=== PATIENT | male | born 1950 | race Caucasian/White ===

== ENCOUNTER 2018-10-05 10:08 | Day surgery (SDC) | payer MEDICARE, SELFPAY ==
--- NOTE | 2018-10-05 | PATH_ITS ---
[facility] Accession Number: [id number] . 01 Material submitted: . PART A: colon - ASCENDING COLON POLYP PART B: colon - TRANSVERSE COLON POLYP PART C: rectum - RECTAL POLYP . 01 Clinical history: . A-B: POLYP X3 . 02 Diagnosis: A. Ascending Colon, Polyp, Biopsy: Tubular adenoma. . B. Transverse Colon, Polyp, Biopsy: Tubular adenoma. . C. Rectum, Polyp, Biopsy: Tubular adenoma. MRV/10/07/2018 . 02 Electronically signed: . Elizabeth Velazquez MD, Pathologist NPI- [id number] . 01 Gross description: . Part A: ASCENDING COLON POLYP: Received in formalin are 3 fragment(s) of mayo, soft tissue measuring 0.5 x 0.3 x 0.3 cm to 0.4 x 0.4 x 0.1 cm submitted entirely in 1 cassette(s) Part B: TRANSVERSE COLON POLYP: Received in formalin are multiple fragment(s) of mayo, soft tissue measuring 0.9 x 0.5 x 0.3 cm in aggregate submitted entirely in 1 cassette(s) Part C: RECTAL POLYP: Received in formalin are multiple fragment(s) of mayo, soft tissue measuring 1.0 x 0.5 x 0.3 cm in aggregate submitted entirely in 1 cassette(s) /CKI /CKI . 02 Pathologist provided ICD-10: D12.2, D12.3, D12.8 . 02 CPT . 211133, 429843, [id number] Performed at: [address] [id number] MD Eulalio Tierney MD Phone: [phone] Performed at: 02 [facility] [address] [place] [id number] MD Elizabeth Velazquez MD Phone: [phone]
[2018-10-05 10:53] VITALS: BP 143/83; PULSE 86; RESP 16; TEMP 37.4; O2SAT 96; BMI 33.5
[2018-10-05] MEDS: SODIUM CHLORIDE 0.9% 1,000 ML 150 ML IV (11:06)
--- NOTE | 2018-10-05 12:50 | PM.HP.1 ---
History of Present Illness Chief complaint: [id number] Patient History Social History household members: none Family & Social History Social History: household members none Meds Home Medications Medication Instructions Recorded Confirmed Type levothyroxine 50 mcg PO DAILY #0 05/11/10 10/05/18 History ascorbic acid (vitamin C) [Vitamin 500 mg PO DAILY 10/05/18 10/05/18 History C] cyanocobalamin (vitamin B-12) 500 mcg PO DAILY 10/05/18 10/05/18 History [Vitamin B-12] divalproex 500 mg PO TID 10/05/18 10/05/18 History multivitamin,tx-minerals 1 cap PO DAILY 10/05/18 10/05/18 History [Multi-Vitamin HP/Minerals] Allergies Allergy/AdvReac Type Severity Reaction Status Date / Time No Known Drug Allergies Allergy Verified 10/05/18 10:47 Review of Systems Review of Systems All systems reviewed & are unremarkable except as noted in HPI and below Exam Vital Signs (past 8 hours): - 10/05/18 10:53 Temperature 99.3 F Pulse Rate 86 Respiratory Rate 16 Blood Pressure 143/83 H Pulse Oximetry 96 Oxygen Delivery Method Room Air Narrative Exam Narrative: Awake alert and oriented x3, pupils round reactive to light, heart regular rate and rhythm, lungs clear, abdomen soft nontender nondistended Assessment & Plan Assessment & Plan narrative: Colon cancer screening, colonoscopy
[2018-10-05] MEDS: MIDAZOLAM 5 MG/5 ML VIAL IV (13:11)
[2018-10-05] MEDS: fentaNYL 250 MCG/5 ML INJ IV (13:12)
--- NOTE | 2018-10-05 13:32 | PM.OP.ENDO ---
Operative Date/Time/Diagnoses Date of procedure: 10/05/18 Procedure & Clinicians Study performed: Colonoscopy with cold biospy and snare polypectomy Moderate conscious sedation was administered by the endoscopy nurse and supervised by the endoscopist. The following parameters were monitored: Oxygen saturation, heart rate, blood pressure, and response to care. Sedation: 5 mg of Versed, 175 micro g fentanyl Indications: Colon cancer screening. Last colonoscopy was done greater than 10 years ago Procedure Notes Procedure in detail: Prior to the procedure, history and physical was performed, and patient medications and allergies were reviewed. Preprocedure nursing history and assessment was reviewed. Patient identification and proposed procedure were verified by the physician and nurse in the procedure room. The physical status of the patient was reassessed after the procedure. After informed consent was obtained including risks, benefits, and alternatives, the scope was passed under direct vision. Throughout the procedure, the patient's blood pressure, pulse, and oxygen saturations were monitored continuously. The colonoscope was introduced through the anus and advanced to the cecum as identified by the appendiceal orifice and ileocecal valve. The patient tolerated the procedure well. Bowel prep was deemed adequate to detect polyps greater than 5 mm. Perianal and digital rectal examination unremarkable. Retroflexion in the rectum notable for grade 2 internal hemorrhoids Many medium mouth diverticula noted in the sigmoid colon Seven sessile polyps noted in the rectum, transverse colon, and ascending colon. These ranged in size from 3 mm up to 7 mm. They were resected and retrieved with a combination of Jumbo forceps and cold snare. Impression: Seven 3-7 mm polyps removed from the rectum, transverse colon, and ascending colon Sigmoid colon diverticulosis Internal hemorrhoids Sedation minutes: 28 Complications: other (EBL minimal. No complications) Plan for aftercare: Follow-up pathology results Repeat colonoscopy at a date to be determined based on pathology results Resume home medications High-fiber diet Discharge home with escort
[2018-10-05 13:36] VITALS: BP 121/81; PULSE 74; RESP 10; TEMP 36.9; O2SAT 95
[2018-10-05 13:41] VITALS: BP 121/71; PULSE 84; RESP 16; O2SAT 95
[2018-10-05 13:49] VITALS: BP 122/76; PULSE 78; RESP 16; TEMP 36.6; O2SAT 93
--- NOTE | 2018-10-05 13:57 | SUR.PHASEII ---
pt arrived to phase II via stretcher. pt sitting up, drinking coffee and talking to friend at bedside. pt denies any pain/discomfort or nausea. abd soft at this time. bed in lowest position and call light given to pt. pt appears comfortable at this time. pt requesting to rest a little longer prior to getting dressed to go home.
[2018-10-05 14:07] VITALS: BP 130/77; PULSE 75; RESP 16; TEMP 36.3; O2SAT 97
== END 2018-10-05 14:19 | disposition home or self-care (01) ==
PROVIDERS: PCP Internal Medicine; Visit Provider Internal Medicine
PROC: 0DJD8ZZ Inspection of Lower Intestinal Tract, Via Natural or Artificial Opening Endoscopic (ICD-10-PCS; CPT 45378; principal; 2018-10-05 12:30)
DX: Z12.11 Encounter for screening for malignant neoplasm of colon (principal); K57.30 Diverticulosis of large intestine without perforation or abscess without bleeding; K64.1 Second degree hemorrhoids; D12.2 Benign neoplasm of ascending colon; D12.3 Benign neoplasm of transverse colon; D12.8 Benign neoplasm of rectum
CPT/HCPCS: 45385; 45380; 88305; J2250; J3010

== ENCOUNTER → 2020-03-05 15:59 | Outpatient (CLI) | payer MEDICARE, SELFPAY ==
[2020-03-05 17:22] LABS: BUN Creatinine Ratio 14.6 (6-22); Blood Urea Nitrogen 14 mg/dL (9-20); Calcium 9.8 mg/dL (8.4-10.2); Carbon Dioxide 29 mmol/L (22-32); Chloride 104 mmol/L (98-107); Cholesterol 197 mg/dL (140-199); Estimated Glomerular Filt Rate > 60.0 mL/min (>60); Glucose 85 mg/dL (80-110); HDL Cholesterol 33 mg/dL (40-60); HEMOLYSIS < 15 (0-50); LDL Cholesterol Calculated 125 mg/dL (<100); Potassium 4.6 mmol/L (3.4-5.1); Sodium 140 mmol/L (137-145); Triglycerides 195 mg/dL (35-150)
[2020-03-05 17:51] LABS: TSH w/ Reflex to FT4 3.78 uIU/mL (0.47-4.68)
[2020-03-06 06:36] LABS: PSA Free % 37.6 % (.); PSA, Total 2.5 ng/mL (0.0-4.0)
== END ==
PROVIDERS: PCP Internal Medicine; Referring Provider Internal Medicine; Visit Provider Internal Medicine
DX: E03.9 Hypothyroidism, unspecified (principal); Z12.5 Encounter for screening for malignant neoplasm of prostate; M25.561 Pain in right knee; E78.5 Hyperlipidemia, unspecified
CPT/HCPCS: 36415; 80048; 80061; 84153; 84154; 84443

== ENCOUNTER → 2020-07-15 08:45 | Outpatient (CLI) | payer OTHER, SELFPAY ==
[2020-07-15 10:04] LABS: Alanine Aminotransferase 47 IU/L (<50); Aspartate Aminotransferase 40 IU/L (17-59); Cholesterol 109 mg/dL (140-199); HDL Cholesterol 34 mg/dL (40-60); LDL Cholesterol Calculated 52 mg/dL (<100); Triglycerides 117 mg/dL (35-150)
[2020-07-17 15:40] LABS: C-Reactive Protein Quant 0.9 mg/dL (<1.0); Rheumatoid Factor < 8.6 IU/mL (<12.0)
--- NOTE | 2020-10-06 07:47 | PC.NURSE ---
I received a call in the evening 10/05/20 from a person identifying themself as Enmanuel Lyles, 1950. He stated that he is currently involuntarily detained at [facility] in [place], [place]. He reported that he is not receiving proper medical care there. He stated that he is overmedicated and has had 3 falls, most recently the night before 10/04/20, that was really bad. I thought I broke my neck. Pt reports concern for his frequent falls and resultant neck pain, and his CHF. Pt reports he has been denied emergency medical care. He called [facility] to request transport to our facility for medical evaluation. I assured pt that I would forward his complaint to proper channels. APS report made confirmation #[id number]
== END ==
PROVIDERS: PCP Internal Medicine; Referring Provider Internal Medicine; Visit Provider Internal Medicine
DX: E78.5 Hyperlipidemia, unspecified (principal)
CPT/HCPCS: 36415; 80061; 84450; 84460; 84550; 86140; 86430

== ENCOUNTER → 2020-07-17 16:14 | Outpatient (CLI) | payer MEDICARE, SELFPAY ==
--- NOTE | 2020-07-17 16:16 | DI.RAD.S_ITS ---
PROCEDURE: XR KNEE RT 1TO2V INDICATIONS: KNEE PAIN TECHNIQUE: 2 views of the knee were acquired. COMPARISON: None. FINDINGS: Bones: No fractures or dislocations. No suspicious bony lesions. Moderate lateral and patellofemoral as well as mild to moderate medial compartment narrowing. Minimal periarticular osteophytes and no erosions. Soft tissues: Moderate joint effusion. No suspicious soft tissue calcifications. IMPRESSION: Tricompartmental degenerative changes consistent with arthritis as above. Dictated by: Tonia Valentino M.D. on 07/17/2020 at 17:25 Approved by: Tonia Valentino M.D. on 07/17/2020 at 17:25
--- NOTE | 2020-07-17 16:16 | DI.RAD.S_ITS ---
PROCEDURE: XR KNEE LT 1TO2V INDICATIONS: KNEE PAIN TECHNIQUE: 2 views of the knee were acquired. COMPARISON: None. FINDINGS: Bones: No fractures or dislocations. No suspicious bony lesions. There is moderate to severe medial and mild to moderate lateral as well as patellofemoral compartment narrowing. No erosions. Very minimal periarticular osteophytes. Soft tissues: [id number] joint effusion. No suspicious soft tissue calcifications. IMPRESSION: Tricompartmental arthritic change most severe in the medial compartment as above. Dictated by: Tonia Valentino M.D. on 07/17/2020 at 17:24 Approved by: Tonia Valentino M.D. on 07/17/2020 at 17:25
== END ==
PROVIDERS: PCP Internal Medicine; Referring Provider Internal Medicine; Visit Provider Internal Medicine
DX: M25.561 Pain in right knee (principal); M25.562 Pain in left knee; M25.461 Effusion, right knee; M25.462 Effusion, left knee
CPT/HCPCS: 73560

== ENCOUNTER → 2020-12-13 14:45 | Outpatient (CLI) | payer OTHER, SELFPAY ==
--- NOTE | 2020-12-13 14:46 | DI.ECHO.S_ITS ---
[facility] +---------+ [facility] +---------+ : : [address] : : : : [phone] : : : : Phone: [phone] Echocardiogram Report + + :Name: EMMA FRYE Study Date: 12/13/2020 Height: 69 in : :[facility] ReadingLocation: Weight: 235 lb : : Gender: Male BSA: 2.2 m2 : :: 1950 Age: 70 yrs BP: 146/80 mmHg: :Reason For Study: Dyspnea : :Ordering Physician: ROSELYN, : :SONALI Performed By: Jorge Mcdaniel : :Referring: SONALI DEMPSEY : + + Interpretation Summary The left ventricle is normal in size and wall thickness. Left ventricular systolic function is normal. The ejection fraction is estimated to be 60-65%. There are no focal wall motion abnormalities. Diastolic parameters suggest probable normal left ventricular diastolic function and normal filling pressures. The right ventricle is normal in size and function. Pulmonary artery pressures cannot be estimated because of the lack of a measurable TR jet velocity but the IVC suggests a CVP of around 3 mmHg. Both atria are normal in size. There is no significant valvular heart disease. The aortic root is normal size. Procedure: A two-dimensional transthoracic echocardiogram with color flow and Doppler was performed. The study quality was technically adequate. There is no prior echocardiogram noted for this patient. The patient was in sinus rhythm with heart rates between 75-83 bpm during the exam. Left Ventricle: The left ventricle is normal in size and wall thickness. Left ventricular systolic function is normal. The ejection fraction is estimated to be 60-65%. There are no focal wall motion abnormalities. Diastolic parameters suggest probable normal left ventricular diastolic function and normal filling pressures. Right Ventricle: The right ventricle is normal in size and function. Atria: Both atria are normal in size. There is no Doppler evidence for an interatrial shunt. Mitral Valve: The mitral valve is normal in structure and function. There is no mitral regurgitation noted. Aortic Valve: The aortic valve is normal in structure and function. No aortic regurgitation is present. Tricuspid Valve: The tricuspid valve is normal in structure and function. No tricuspid regurgitation. Pulmonary artery pressures cannot be estimated because of the lack of a measurable TR jet velocity but the IVC suggests a CVP of around 3 mmHg. Pulmonic Valve: The pulmonic valve is not well visualized. There is no pulmonic valvular regurgitation. There is no significant valvular heart disease. Great Vessels: The aortic root is normal size. The ascending aorta could not be visualized. The IVC is of normal diameter and collapses greater than 50% with a sniff. This suggests a low right atrial pressure of 3 mm Hg. Pericardium/ Pleura There is no pericardial effusion. There is no pleural effusion. MMode/2D Measurements & Calculations LVIDd: 5.5 cm LVOT diam: 2.1 cm LVIDs: 3.4 cm Ao root diam: 3.5 cm FS: 38.2 % IVSd: 0.88 cm LVPWd: 0.83 cm LV sterling. diameter/BSA (cm/m^2): 2.5 LV sys. diameter/BSA (cm/m^2): 1.5 LA A2 area: 19.0 cm2 RA long axis: 5.3 cm LA A4 area: 20.0 cm2 RA area: 15.2 cm2 LA length (vol): 5.4 cm RA vol: 37.2 ml LA vol: 59.2 ml RA : 16.8 ml/m2 LA vol index: 26.8 ml/m2 TAPSE: 2.5 cm Doppler Measurements & Calculations Ao V2 max: 156.0 cm/sec LVOT Max Leander: 136.3 cm/sec Ao V2 mean: 102.8 cm/sec LV V1 max P.4 mmHg Ao max P.7 mmHg LV V1 VTI: 23.9 cm Ao mean P.9 mmHg GEOVANNA(I,D): 3.2 cm2 Ao V2 VTI: 27.0 cm GEOVANNA(V,D): 3.2 cm2 sev ratio: 0.89 GEOVANNA indexed to BSA (cm^2/m^2): 1.4 MV E max leander: 96.9 cm/sec PA pr(Accel): 52.5 mmHg MV A max leander: 96.9 cm/sec MV E/A: 1.0 Med Peak E' Leander: 8.5 cm/sec E/E' med: 11.4 Lat Peak E' Leander: 10.7 cm/sec E/E' lat: 9.0 E/e' average: 10.2 MV dec time: 0.22 sec SV(LVOT): 86.5 ml Reading Physician:05:15 PM
== END ==
PROVIDERS: PCP Internal Medicine; Referring Provider Internal Medicine; Visit Provider Internal Medicine
DX: R06.00 Dyspnea, unspecified (principal)
CPT/HCPCS: 93306

== ENCOUNTER 2021-04-01 22:35 | Emergency (ER) | payer OTHER, SELFPAY ==
[2021-04-01 22:40] VITALS: BP 126/57; PULSE 91; RESP 18; TEMP 36.9; O2SAT 96; BMI 34.0
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
== END 2021-04-02 02:40 | disposition home or self-care (01) ==
PROVIDERS: Emergency Provider Emergency Medicine; PCP Internal Medicine
DX: Z76.0 Encounter for issue of repeat prescription (principal)
CPT/HCPCS: 99281